=== PATIENT | male | born 1995 | race Caucasian/White ===

== ENCOUNTER 2024-06-23 14:02 | Emergency (ER) | payer OTHER, SELFPAY ==
[2024-06-23 14:09] VITALS: BP 140/88
[2024-06-23 14:27] LABS: % Basophils 0.7 % (0-2); % Eosinophils 0.7 % (0-6); % Immature Granulocytes 0.2 % (0-0.5); % Monocytes 8.6 % (1.7-9.3); % Neutrophils 66.8 % (42.2-75.2); Absolute Lymphocytes 1.3 10^3/uL (1.2-3.4); Absolute Monocytes 0.5 10^3/uL (0.1-0.6); Absolute Neutrophils 3.8 10^3/uL (1.4-6.5); Hematocrit 45.2 % (39.0-52.0); Hemoglobin 15.2 g/dL (13.0-18.0); Mean Corp Hgb Conc. 33.6 g/dL (33.0-37.0); Mean Corpuscular Volume 86.3 fL (80.0-94.0); Mean Platelet Volume 12.1 fL (7.4-10.4); Nucleated Red Blood Cells % 0 % (-); Platelet Count 195 10^3/uL (130-400); Red Blood Cell Count 5.24 10^6/uL (4.70-6.10); White Blood Cell Count 5.7 10^3/uL (4.8-10.8)
[2024-06-23 14:47] LABS: ALT (SGPT) 27 U/L (0-50); AST (SGOT) 23 U/L (17-59); Albumin 4.9 g/dl (3.5-5.0); Alkaline Phosphatase 52 U/L (38-126); Blood Urea Nitrogen 11 mg/dl (9-20); Calcium 9.9 mg/dl (8.4-10.2); Carbon Dioxide 32 mmol/L (22-30); Chloride 102 mmol/L (98-107); Glucose 110 mg/dl (70-99); Potassium 4.4 mmol/L (3.5-5.1); Sodium 142 mmol/L (135-145); Total Bilirubin 0.4 mg/dl (0.2-1.3); Total Protein 8.8 g/dl (6.3-8.2); eGFR > 60.00
--- NOTE | 2024-06-23 16:35 | ED.GENMED ---
History of Present Illness
General
Chief Complaint: Dizziness
Source: patient
Exam Limitations: none
Time Seen by Provider: 06/23/24 15:57
History of Present Illness
History of Present Illness:
28-year-old male otherwise healthy presents with intermittent dizziness of which she describes as a spinning sensation over the past 8 or 9 days. He was thought to have vertigo. Initially tried meclizine and Dramamine without any relief. He was
then prescribed vestibular therapy. When he saw the vestibular therapist yesterday he was not having any symptoms. His dizziness restarted today when he turned his whole body to the right in his truck to face the back of his truck. He had dizzy
sensation without nausea or vision change. He then went to sit on the toilet and had more dizziness. No associated headache. No double vision or blurry vision. No unilateral numbness or weakness. He does note neck pain. He does note that his
chiropractor tried to adjust his neck after his dizziness started. No other complaints at this time
Phy Exam
Physical Exam
Physical Exam:
General: Well-appearing male no acute respiratory distress
HEENT: NC/AT TM's normal, PERRL, EOMI, mild horizontal nystagmus
Heart: RRR, NO murmurs
Lungs: CTA bilaterally
Neuro: Alert and oriented x 3. Finger-nose wawa-rb-eeyd intact Pratibha-Hallpike negative. Conversing appropriately no dysarthria or aphasia.
Extremities: No cyanosis or edema
Course
Orders/Labs/Results
Orders:
Orders
06/23/24 14:14
Electrocardiogram (*1) Urgent
Reason for Study: Vertigo / Dizzy
EKG- Treatment ONCE
06/23/24 14:19
Complete Blood Count/With Diff Urgent
Comprehensive Metabolic Panel Urgent
Lyme Progressive Urgent
Comment: ADD ON
06/23/24 16:23
CT Head & Neck Angio W/wo IV Urgent
Reason For Exam: dizzy
06/23/24 16:32
Add On- LAB Urgent
Tests Added?: lyme titer
Abnormal Lab Results
06/23/24
14:19
MPV 12.1 H fL
(7.4-10.4)
Carbon Dioxide 32 H mmol/L
(22-30)
Glucose 110 H mg/dl
(70-99)
Total Protein 8.8 H g/dl
(6.3-8.2)
06/23/24 14:19
06/23/24 14:19
Vital Signs
Initial and Last Documented VS:
Initial Vital Signs
Temp Pulse Resp BP Pulse Ox
97.9 F 81 18 140/88 100
06/23/24 14:09 06/23/24 14:09 06/23/24 14:09 06/23/24 14:09 06/23/24 14:09
Last Documented Vital Signs
Temp Pulse Resp BP Pulse Ox
97.9 F 68 18 117/73 100
06/23/24 14:09 06/23/24 17:35 06/23/24 14:09 06/23/24 17:35 06/23/24 14:09
MDM/Problems Addressed
Differential Diagnosis Includes:
Dizziness with neck pain. dizziness not reproducible on exam. Question vertigo, but given neck pain and recent adjustment, consider vertebral artery dissection or more centrally clysed issue. Unlikely in a young healthy person but CT angio of the
head and neck ordered. Labs reviewed without significant finding did add Lyme titer. Discussed with neurology
*Critical Care Note
Total Time (30-74mins, 75-104mins- exclusive of procedures): Not Applicable
Update Note
Update Note:
Patient evaluated by neurology CT angio of the head and neck were negative. OMT was provided by neurology who feels that the most likely diagnosis is vertebrobasilar insufficiency. Recommended follow-up with family doctor. Stable for discharge
ED Attending Note
-
Portions of this chart may have been created with voice recognition software.� Occasional wrong word or��sound alike� substitutions may have occurred due to the inherent limitations of voice recognition software.
Discharge Plan
Departure
Patient Disposition: Home (Routine Discharge)
Date of Disposition: 06/23/24
Time of Disposition: 18:43
Patient with high blood pressure during this ER visit?: No
Discharge Problem:
Vertebrobasilar insufficiency
Instructions: Vertigo (a Type of Dizziness) (DC)
Referrals:
Almas Zamudio DO [Family Provider] -
Activity Restrictions/Additional Instructions:
Please return here for worsening symptoms otherwise follow-up with your family doctor
Interventions
Interventions:
*Risk Screen - Suicide Last Done: 06/23/24 14:09
*General Assessment Last Done: 06/23/24 14:09
*Neglect/Abuse Screening Last Done: 06/23/24 14:09
*ED- Fall Risk Assessment Last Done: 06/23/24 17:30
*ED COVID-19 Vaccine History Last Done: 06/23/24 17:30
ED- Neurological Assessment Last Done: 06/23/24 17:30
ED- Cardiac Assessment Last Done: 06/23/24 17:30
ED Swallowing Screen Last Done: 06/23/24 17:30
Discharge Date and Time
Print Language: SETSWANA
[2024-06-23 17:35] VITALS: BP 117/73
--- NOTE | 2024-06-23 17:36 | CON.NEURO ---
Neuro Assessment/Plan
Assessment
Vertebrobasilar insufficiency due to cervical subluxation
OMT atlantoaxial and suboccipital release performed which resolved the symptoms
CTA head/neck imgs rev'd normal, no carotid/vertebral dissection. poor contrast timing
Plan
d/c home
Consultation
Order
Date of Consultation: 06/23/24
Requesting Provider: Say Cotto
Reason for Consult: Vertigo
Subjective/Objective
Subjective Data
Date of Service: June 23, 2024
28 year old man, neck pain and vertigo x9 days. tried massage and chiropractor w/o improvement.
no diplopia, tinnitus, hearing loss, weakness, or numbness
Objective Data
Vital Signs
Temp Pulse Resp BP Pulse Ox
36.6 C 68 18 117/73 100
06/23/24 14:09 06/23/24 17:35 06/23/24 14:09 06/23/24 17:35 06/23/24 14:09
Lab Results
06/23/24 14:19
06/23/24 14:19
Sodium 142 mmol/L (135-145) 06/23/24 14:19
Potassium 4.4 mmol/L (3.5-5.1) 06/23/24 14:19
BUN 11 mg/dl (9-20) 06/23/24 14:19
Glucose 110 mg/dl (70-99) H 06/23/24 14:19
Calcium 9.9 mg/dl (8.4-10.2) 06/23/24 14:19
Patient Allergies
No Known Allergies Allergy (Unverified 06/23/24 14:15)
Physical Exam
-
AAOx3, speech clear, language intact
VFF, EOMI, face symmetric
full strength b/l UE/LE
sensation intact touch/temp/vib
cervical rotation decreased to the right
palpated atlanto axial subluxation
diffuse neck muscle spasm
== END 2024-06-23 19:03 | disposition home or self-care (01) ==
LOC: EMR 14:02
PROVIDERS: EMERGENCY PHYSICIAN Emergency Medicine; FAMILY PHYSICIAN Family Medicine
DX: G45.0 Vertebro-basilar artery syndrome (principal)
CPT/HCPCS: 99284; 70496; 70498; 80053; 85025; 86618; 93005; Q9967